=== PATIENT | female | born 1975 | race Two or more races ===

== ENCOUNTER 2022-04-04 05:42 | Inpatient (IN) | payer OTHER ==
[~2022-04-04] VITALS: Ht 157.5 cm; Wt 57.7 kg
[2022-04-04 06:31] LABS: Basophils # (auto) 0 10 ^3/uL (0-0.2); Eosinophils # (auto) 0.1 10 ^3/uL (0-0.8); Eosinophils % (auto) 0.5 % (0.0-7.0); Lymphocytes # (auto) 1.1 10 ^3/uL (0.4-5.4); Monocytes # (auto) 1.8 10 ^3/uL (0-1.3); White Blood Cell 13.4 10^3/uL (4.4-10.8)
[2022-04-04 06:33] LABS: Basophils % (auto) 0.3 % (0.0-2.0); Hematocrit 54.7 % (36.0-46.0); Hemoglobin 18.6 g/dL (12.2-16.2); Mean Corpuscular Hemoglobin 32.6 pg (28.0-32.0); Mean Corpuscular Volume 95.7 fL (80.0-100.0); Monocytes % (auto) 13.1 % (0.0-12.0); Neutrophils # (auto) 10.5 10 ^3/uL (1.6-8.6); Neutrophils % (auto) 78.1 % (37.0-80.0); Nucleated Red Blood Cells % 0.2 %; Red Blood Cells 5.72 10^6/uL (4.0-5.20); Red Cell Distribution Width 12.6 % (11.8-14.3)
[2022-04-04] MEDS ORDERED: SODIUM CHLORIDE 0.9% 1,000 ML IVB ONE (06:45)
[2022-04-04] MEDS ORDERED: SODIUM CHLORIDE 0.9% 1,000 ML IV ONE ×2 (06:45→17:30)
[2022-04-04 07:08] LABS: Albumin 3.6 g/dL (3.4-5.0); BUN/Creatinine Ratio 26.4; Bilirubin, Total 0.7 mg/dL (0.2-1.0); Calcium 9.7 mg/dL (8.5-10.1); Potassium 3.9 mmol/L (3.5-5.1); Total Protein 7.2 g/dL (6.4-8.2)
[2022-04-04] MEDS ORDERED: cefTRIAXone 1GM/50ML D5W 50 ML IV ONE (07:30)
[2022-04-04 08:30] LABS: Urine Bacteria NONE SEEN /hpf (None Seen); Urine Blood Negative /uL (Negative); Urine Hyaline Cast FEW /lpf (0 - 2); Urine Mucus FEW (None Seen); Urine Specific Gravity 1.027 (1.001-1.035); Urine WBC 11 /hpf (0 - 5)
[2022-04-04] MEDS ORDERED: ONDANSETRON HCL 4 MG/2 ML VIAL IV ONE (14:45)
[2022-04-04] MEDS ORDERED: HYDROmorphone HCL 2 MG/ML VL/or syr IV ONE (14:45)
[2022-04-04] MEDS: SODIUM CHLORIDE 0.9% 1,000 ML IV SCH (17:46)
[2022-04-04] MEDS ORDERED: methylPREDNISolone SOD SUCC 125 MG/2 ML VL IV ONE (18:15)
[2022-04-04 18:44] VITALS: BP 111/70
[2022-04-04] MEDS: ALBUTEROL SULF 2.5 MG/0.5ML(0.5%) NEB SOLN NEB PRN (18:45)
[2022-04-04] MEDS: IPRATROPIUM BROM 0.5 MG/2.5ML INH SOL NEB PRN (18:46)
[2022-04-04 19:30] VITALS: BP 117/59
[2022-04-04 20:11] VITALS: BP 111/70
[2022-04-04 20:11] LABS: Magnesium 2.3 mg/dL (1.6-2.6); Phosphorus 6.2 mg/dL (2.5-4.90)
[2022-04-04 22:00] VITALS: BP 117/59
[2022-04-05] MEDS: SODIUM CHLORIDE 0.9% 1,000 ML IV SCH ×4 (00:12→18:25)
[2022-04-05 05:00] VITALS: BP 110/91
[2022-04-05 06:21] LABS: Basophils # (auto) 0 10 ^3/uL (0-0.2); Basophils % (auto) 0.1 % (0.0-2.0); Eosinophils # (auto) 0 10 ^3/uL (0-0.8); Eosinophils % (auto) 0.1 % (0.0-7.0); Hematocrit 47.1 % (36.0-46.0); Hemoglobin 16.1 g/dL (12.2-16.2); Lymphocytes # (auto) 0.4 10 ^3/uL (0.4-5.4); Lymphocytes % (auto) 5.4 % (10.0-50.0); Mean Corpuscular Hemoglobin 32.9 pg (28.0-32.0); Mean Corpuscular Hgb Conc. 34.2 g/dL (32.0-36.0); Mean Corpuscular Volume 96.1 fL (80.0-100.0); Monocytes # (auto) 0.6 10 ^3/uL (0-1.3); Monocytes % (auto) 8.2 % (0.0-12.0); Neutrophils % (auto) 86.2 % (37.0-80.0); Red Cell Distribution Width 12.5 % (11.8-14.3)
[2022-04-05 06:28] LABS: Calcium 8.3 mg/dL (8.5-10.1); Potassium 3.8 mmol/L (3.5-5.1)
[2022-04-05 06:34] LABS: Albumin 3.2 g/dL (3.4-5.0); Bilirubin, Total 0.5 mg/dL (0.2-1.0); Total Protein 6.3 g/dL (6.4-8.2)
[2022-04-05 09:00] VITALS: BP 105/58
[2022-04-05] MEDS: cefTRIAXone 1GM/50ML D5W 50 ML IV SCH (09:17)
[2022-04-05] MEDS: ONDANSETRON HCL 4 MG/2 ML VIAL IV PRN (09:17)
[2022-04-05] MEDS: PANTOPRAZOLE 40 MG/10 ML VIAL INJ IV SCH (09:17)
[2022-04-05] MEDS: ENOXAPARIN SOD 40 MG/0.4 ML SYRINGE SC SCH (09:19)
[2022-04-05] MEDS: HYDROmorphone HCL 2 MG/ML VL/or syr IV PRN ×4 (09:19→22:41)
[2022-04-05] MEDS: NICOTINE 21MG/24 HR TOPICAL PATCH TD SCH (09:20)
[2022-04-05 13:00] VITALS: BP 112/65
[2022-04-05 17:00] VITALS: BP 105/58
[2022-04-05 21:58] VITALS: BP 101/59
[2022-04-05] MEDS: ALBUTEROL SULF 2.5 MG/0.5ML(0.5%) NEB SOLN NEB PRN (22:39)
[2022-04-05] MEDS: IPRATROPIUM BROM 0.5 MG/2.5ML INH SOL NEB PRN (22:39)
[2022-04-06] MEDS: SODIUM CHLORIDE 0.9% 1,000 ML IV SCH ×3 (03:15→18:00)
[2022-04-06] MEDS: HYDROmorphone HCL 2 MG/ML VL/or syr IV PRN ×3 (03:15→19:54)
[2022-04-06 04:39] VITALS: BP 101/58
[2022-04-06 09:00] VITALS: BP 99/64
[2022-04-06] MEDS: cefTRIAXone 1GM/50ML D5W 50 ML IV SCH (09:41)
[2022-04-06] MEDS: PANTOPRAZOLE 40 MG/10 ML VIAL INJ IV SCH (09:41)
[2022-04-06] MEDS: ENOXAPARIN SOD 40 MG/0.4 ML SYRINGE SC SCH (09:41)
[2022-04-06] MEDS: NICOTINE 21MG/24 HR TOPICAL PATCH TD SCH (09:47)
[2022-04-06 13:00] VITALS: BP 136/70
[2022-04-06] MEDS ORDERED: GASTROGRAFIN 120 ML SOL ONE (13:18)
[2022-04-06 17:00] VITALS: BP 122/67
[2022-04-06] MEDS: ONDANSETRON HCL 4 MG/2 ML VIAL IV PRN (19:55)
[2022-04-06 22:00] VITALS: BP 107/58
[2022-04-07] MEDS: HYDROmorphone HCL 2 MG/ML VL/or syr IV PRN ×2 (01:11→09:03)
[2022-04-07] MEDS: ONDANSETRON HCL 4 MG/2 ML VIAL IV PRN (01:12)
[2022-04-07] MEDS: SODIUM CHLORIDE 0.9% 1,000 ML IV SCH ×3 (06:35→19:00)
[2022-04-07 09:00] VITALS: BP 117/75
[2022-04-07] MEDS: PANTOPRAZOLE 40 MG/10 ML VIAL INJ IV SCH (09:03)
[2022-04-07] MEDS: NICOTINE 21MG/24 HR TOPICAL PATCH TD SCH (09:04)
[2022-04-07] MEDS: cefTRIAXone 1GM/50ML D5W 50 ML IV SCH (09:05)
[2022-04-07] MEDS ORDERED: GASTROGRAFIN 120 ML SOL ONE (09:52)
[2022-04-07 13:00] VITALS: BP 100/58
[2022-04-07] MEDS: ENOXAPARIN SOD 40 MG/0.4 ML SYRINGE SC SCH (14:40)
[2022-04-07 17:00] VITALS: BP 132/89
[2022-04-07] MEDS ORDERED: MELATONIN 5 MG TAB PO PRN (21:30)
[2022-04-07 22:00] VITALS: BP 104/65
[2022-04-08] MEDS: SODIUM CHLORIDE 0.9% 1,000 ML IV SCH (04:50)
[2022-04-08 05:00] VITALS: BP 117/70
[2022-04-08 08:00] VITALS: BP 112/67
[2022-04-08] MEDS: PANTOPRAZOLE 40 MG/10 ML VIAL INJ IV SCH (09:20)
[2022-04-08] MEDS: cefTRIAXone 1GM/50ML D5W 50 ML IV SCH (09:20)
[2022-04-08] MEDS: NICOTINE 21MG/24 HR TOPICAL PATCH TD SCH (09:20)
[2022-04-08] MEDS: ENOXAPARIN SOD 40 MG/0.4 ML SYRINGE SC SCH (09:20)
[2022-04-08 12:00] VITALS: BP 111/73
[2022-04-08 12:57] VITALS: BP 115/67
[2022-04-09 22:18] LABS: Hepatitis C Antibody Negative (Negative)
== END 2022-04-08 14:05 | disposition home or self-care (01) | DRG 247 ==
LOC: EDBD 05:42 → ER 05:42 → OVERFLOW 15:56 → EAST 18:07
PROVIDERS: ADMIT Nurse Practitioner Family; ATTEND Nurse Practitioner Family
PROC: 0D9670Z Drainage of Stomach with Drainage Device, Via Natural or Artificial Opening (ICD-10-PCS; principal; 2022-04-04)
DX: K56.609 Unspecified intestinal obstruction, unspecified as to partial versus complete obstruction (principal); J96.01 Acute respiratory failure with hypoxia; N17.9 Acute kidney failure, unspecified; D72.829 Elevated white blood cell count, unspecified; E86.0 Dehydration; R00.0 Tachycardia, unspecified; F17.210 Nicotine dependence, cigarettes, uncomplicated; E87.1 Hypo-osmolality and hyponatremia; Z20.822 Contact with and (suspected) exposure to COVID-19; Z71.6 Tobacco abuse counseling
CPT/HCPCS: 36415; 36600; 71045; 74176; 74250; 80053; 81001; 82805; 83605; 83690; 83735; 84100; 84484; 85025; 86803; 87340; 87426; 93005; 94640; 96361; 96365; 96375; C9113; G0378; J0696; J2405